=== PATIENT | male | born 1990 | race African-American/Black ===

== ENCOUNTER 2019-06-24 19:44 | Emergency (ER) | payer OTHER ==
[~2019-06-24] VITALS: Ht 172.7 cm; Wt 63.5 kg
[2019-06-24 19:45] VITALS: BP 142/68
--- NOTE | 2019-06-24 20:01 | NUR ---
PT PIA IN [facility], WAITING FOR BED, VSS
--- NOTE | 2019-06-24 20:15 | NUR ---
FIRST CONTACT WITH PATIENT PATIENT PIA FROM [facility] C/O GEN WEAKNESS +NAUSEA AND VOMITING SINCE X 3 HOURS. PER EMS PATIENT LEFT ARROWHEAD YESTERDAY FOR PYSCH. PATIENT DENIES ANY SI/HI AT THIS TIME. PATIENT GCS 15 PERRLA 2/1 MM BILAT, AAOX3, UNCLEAR TO WHAT DAY IT IS, BUT DOES CONFIRM NAME, , PRESIDENT, AND YEAR. PATIENT HR ST, 105-115 BPM ON CM , PATIENT DENIES ANY CP/SOB NO ECTOPY NOTED. PATIENT BREATHING IS EVEN AND UNLABORED EQUAL RISE AND FALL OF CHEST. EMS ESTABLISHED IV ACCESS BUT PATIENT REMOVED, WELL GAVE ZOFRAN 2MG ENROUTE. NO ACUTE DISTRESS NOTED, WILL COTINUE TO MONITOR
--- NOTE | 2019-06-24 20:15 | NUR ---
Note undone in EDM - 06/24/19 at 2020 by PENELOPE FIRST CONTACT WITH PATIENT PATIENT PIA FROM [facility] C/O GEN WEAKNESS +NAUSEA AND VOMITING SINCE X 3 HOURS. PER EMS PATIENT LEFT ARROWHEAD YESTERDAY FOR PYSCH. PATIENT DENIES ANY SI/HI AT THIS TIME. PATIENT GCS 15 PERRLA 3, AAOX3, UNCLEAR TO WHAT DAY IT IS, BUT DOES CONFIRM NAME, , PRESIDENT, AND YEAR. PATIENT HR ST, 105-115 BPM ON CM , PATIENT DENIES ANY CP/SOB NO ECTOPY NOTED. PATIENT BREATHING IS E
[2019-06-24] MEDS ORDERED: NACL 0.9% 1,000 ML IV ONE (20:40)
[2019-06-24 21:06] LABS: BASOPHILS # (AUTO) 0.1 K/uL (0.00-0.22); BASOPHILS % (AUTO) 0.5 % (0.0-2.0); EOSINOPHILS # (AUTO) 0.1 K/uL (0-0.4); EOSINOPHILS % (AUTO) 0.4 % (0.0-4.0); HEMATOCRIT 42.9 % (36-52); HEMOGLOBIN 14.5 g/dL (12.0-18.0); LYMPHOCYTES # (AUTO) 1.2 K/uL (2.0-11.5); LYMPHOCYTES % (AUTO) 8.1 % (20.5-51.1); MEAN CORPUSCULAR HEMOGLOBIN 30 pg (27-31); MEAN CORPUSCULAR HGB CONC 34 g/dL (33-37); MEAN CORPUSCULAR VOLUME 87.6 fL (80-94); MONOCYTES # (AUTO) 0.7 K/uL (0.8-1.0); MONOCYTES % (AUTO) 5.2 % (1.7-9.3); NEUTROPHILS # (AUTO) 12.3 K/uL (1.8-7.7); NEUTROPHILS % (AUTO) 85.8 % (42.2-75.2); PLATELET COUNT (AUTO) 228 K/uL (140-450); RED CELL DISTRIBUTION WIDTH 12.4 % (11.6-13.7); WHITE BLOOD COUNT (AUTO) 14.3 K/uL (4.8-10.8)
[2019-06-24 21:20] LABS: ANION GAP 9.2 (8-16); CARBON DIOXIDE 29.7 mmol/L (21-32); CHLORIDE 109 mmol/L (98-107); CREATININE 1.3 mg/dL (0.7-1.3); GFR ARICAN-AMERICAN 83 mL/min (>90); GLUCOSE 132 mg/dL (74-106); POTASSIUM 4.9 mmol/L (3.5-5.1); SODIUM SERUM 143 mmol/L (136-145); UREA NITROGEN, BLOOD 24 mg/dL (7-18)
[2019-06-24 21:26] LABS: ALBUMIN 3.3 g/dL (3.4-5.0); ASPARTATE AMINOTRANSFERASE 48 U/L (15-37); TOTAL BILIRUBIN 0.4 mg/dL (0.0-1.0)
[2019-06-24 21:27] LABS: ACETAMINOPHEN < 0.5 ug/ml (10-30); SALICYLATE < 2.8 mg/dL (2.8-20.0)
[2019-06-24 23:34] LABS: BARBITURATE, URINE NEG. ng/ml (NEG <=200); BENZODIAZEPINE, URINE NEG. ng/mL (NEG <=200); CANNABINOID, URINE POS. ng/mL (NEG <=50); COCAINE, URINE NEG. ng/mL (NEG <=300); OPIATE, URINE NEG. ng/mL (NEG <=2000); PHENCYCLIDINE SCREEN,URINE NEG. ng/mL (NEG <=25)
[2019-06-25 00:02] VITALS: BP 136/72
--- NOTE | 2019-06-25 00:02 | NUR ---
Patient discharged with v/s stable. Written and verbal after care instructions given and explained. Patient verbalized understanding. Ambulatory with steady gait. All questions addressed prior to discharge. Advised to follow up with PMD.
--- NOTE | 2019-06-25 00:02 | NUR ---
IV removed, catheter intact and site benign. Applied folded 4x4 gauze and tape to stop bleeding.
== END 2019-06-25 00:02 | disposition home or self-care (01) ==
LOC: MED 19:44
DX: R53.1 Weakness (principal); F15.10 Other stimulant abuse, uncomplicated; F10.129 Alcohol abuse with intoxication, unspecified; F12.10 Cannabis abuse, uncomplicated; F20.9 Schizophrenia, unspecified; Z88.2 Allergy status to sulfonamides; Y90.0 Blood alcohol level of less than 20 mg/100 ml
CPT/HCPCS: 36415; 80053; 80305; 85025; 93005; 99284; G0480; G0482; J7030

== ENCOUNTER 2019-07-10 06:59 | Emergency (ER) | payer MEDICAID, OTHER ==
[~2019-07-10] VITALS: Ht 172.7 cm; Wt 74.0 kg
[2019-07-10 07:09] VITALS: BP 159/95
--- NOTE | 2019-07-10 07:17 | NUR ---
PATIENT AMBLATED TO BED 4.
--- NOTE | 2019-07-10 07:24 | NUR ---
29/M BIB SELF C/O EPIGASTRIC PAIN X 1 HOUR AGO & PAINFUL URINATION & KRAMER X 2 DAYS. PT REPORTS HE THINKS HE HURT IT HAVING SEX. PT REPORTS RT SIDE LOWER BACK PAIN. NO DISCHARGE, OR HEMATURIA. ADMITS TO "SHOOTING METH" LAST NIGHT.PATIENT STATES PAIN OF 8/10 AT THIS TIME; PATIENT POSITIONED FOR COMFORT; HOB ELEVATED; BEDRAILS UP X1; BED DOWN. ER MD MADE AWARE OF PT STATUS.
--- NOTE | 2019-07-10 07:27 | NUR ---
Patient being evaluated by DR CARREON at bedside.
[2019-07-10] MEDS: NACL 0.9% 1,000 ML IV ONE ×2 (07:48→08:13)
[2019-07-10] MEDS: diphenhydrAMINE 50 MG/ML VIAL IVP ONE ×2 (08:10→08:13)
--- NOTE | 2019-07-10 08:17 | NUR ---
patient removed ivf by himself. he stated: i don't want it".
[2019-07-10 08:18] LABS: BASOPHILS # (AUTO) 0.1 K/uL (0.00-0.22); BASOPHILS % (AUTO) 1.3 % (0.0-2.0); EOSINOPHILS # (AUTO) 0.1 K/uL (0-0.4); EOSINOPHILS % (AUTO) 0.9 % (0.0-4.0); HEMATOCRIT 43.6 % (36-52); HEMOGLOBIN 14.9 g/dL (12.0-18.0); LYMPHOCYTES # (AUTO) 1.1 K/uL (2.0-11.5); LYMPHOCYTES % (AUTO) 14.5 % (20.5-51.1); MEAN CORPUSCULAR HEMOGLOBIN 30 pg (27-31); MEAN CORPUSCULAR HGB CONC 34 g/dL (33-37); MEAN CORPUSCULAR VOLUME 87.7 fL (80-94); MONOCYTES # (AUTO) 1.1 K/uL (0.8-1.0); MONOCYTES % (AUTO) 14.4 % (1.7-9.3); NEUTROPHILS # (AUTO) 5.4 K/uL (1.8-7.7); NEUTROPHILS % (AUTO) 68.9 % (42.2-75.2); PLATELET COUNT (AUTO) 218 K/uL (140-450); RED BLOOD CELL COUNT(AUTO) 4.98 MIL/uL (4.20-6.10); RED CELL DISTRIBUTION WIDTH 12.8 % (11.6-13.7); WHITE BLOOD COUNT (AUTO) 7.8 K/uL (4.8-10.8)
--- NOTE | 2019-07-10 08:19 | NUR ---
patient stated he want to leave.
[2019-07-10 08:20] VITALS: BP 134/90
--- NOTE | 2019-07-10 08:20 | NUR ---
Patient discharged with v/s stable. Written and verbal after care instructions given and explained. Patient refues to sign discharge document. Ambulatory with steady gait. All questions addressed prior to discharge. Advised to follow up with PMD.
--- NOTE | 2019-07-10 08:20 | NUR ---
Fabian villalta in EDM - 07/10/19 at 0838 by [email or web address] PATIENT ELOPED FROM FACILITY. DISCHARGE INSTRUCTIONS NOT GIVEN TO PATIENT. DR. dr christie NOTIFIED.
[2019-07-10 08:28] LABS: APPEARANCE,URINE CLOUDY (CLEAR); BILIRUBIN,URINE NEGATIVE (NEGATIVE); BLOOD, URINE NEGATIVE (NEGATIVE); COLOR,URINE YELLOW (YELLOW); LEUKOCYTE ESTERASE ,URINE NEGATIVE (NEGATIVE); NITRITE, URINE NEGATIVE (NEGATIVE); UGLUCOSE NEGATIVE (NEGATIVE)
[2019-07-10 08:31] LABS: ANION GAP 11.1 (8-16); CARBON DIOXIDE 30.4 mmol/L (21-32); CREATININE 1.1 mg/dL (0.7-1.3); POTASSIUM 3.5 mmol/L (3.5-5.1)
[2019-07-10 08:45] LABS: ALBUMIN 3.9 g/dL (3.4-5.0); TOTAL BILIRUBIN 1.1 mg/dL (0.0-1.0)
[2019-07-10 08:57] LABS: BARBITURATE, URINE NEG. ng/ml (NEG <=200); BENZODIAZEPINE, URINE NEG. ng/mL (NEG <=200); CANNABINOID, URINE POS. ng/mL (NEG <=50); COCAINE, URINE NEG. ng/mL (NEG <=300); OPIATE, URINE NEG. ng/mL (NEG <=2000); PHENCYCLIDINE SCREEN,URINE NEG. ng/mL (NEG <=25)
[2019-07-10 08:59] LABS: RBC,URINE 0-5 /HPF (0-5); WBC,URINE 0-5 /HPF (0-5)
[2019-07-10 09:00] LABS: CALCIUM OXALATE CRYSTALS,UR 0-10 /HPF (None Seen); URINE AMORPHOUS URATE 4+ /HPF (None Seen)
== END 2019-07-10 08:20 | disposition home or self-care (01) ==
LOC: MED 06:59
DX: F15.129 Other stimulant abuse with intoxication, unspecified (principal); R79.89 Other specified abnormal findings of blood chemistry; R03.0 Elevated blood-pressure reading, without diagnosis of hypertension; N34.2 Other urethritis; F12.10 Cannabis abuse, uncomplicated; Z88.2 Allergy status to sulfonamides
CPT/HCPCS: 36415; 80053; 80305; 81001; 82150; 83690; 85025; 99283; J7030; J1200